=== PATIENT | female | born 1975 | race American Indian/Alaskan Native ===

== ENCOUNTER 2019-08-11 14:27 | Outpatient (CLI) | payer BC | END 2019-08-11 14:28 | disposition home or self-care (01) | LOC: LABHHL 14:27 | PROVIDERS: ATTEND Surgery | DX: N60.02 Solitary cyst of left breast (principal) | CPT/HCPCS: 88305; 88341; 88342 ==

== ENCOUNTER 2019-08-24 13:51 | Outpatient (CLI) | payer BC ==
--- NOTE | 2019-08-24 16:32 | Magnetic Resonance Report ---
BILATERAL BREAST MRI WITH AND WITHOUT CONTRAST HISTORY: Recently diagnosed left breast malignancy. COMPARISON: 07/27/2019 TECHNIQUE: Multiplanar multisequence MR images of the breasts were obtained before and after the intr avenous administration of 19 mL of MultiHance contrast agent. FINDINGS: The breasts demonstrate mild background parenchymal enhancement. LEFT BREAST: There is a homogeneously enhancing oval microlobulated 2.3 x 2.1 x 2.2 cm mass within th e left breast at the 8:00 position. This would correspond with the site of recently biopsied invasive ductal carcinoma. A biopsy marker is located within the anterior aspect of this mass. The mass is fa irly superficially located, but does not involve the overlying skin. No evidence of involvement of th e underlying pectoralis muscle. RIGHT BREAST: Within the right upper outer breast there is a 1.1 x 1 x 1.1 cm irregular ill-defined e nhancing mass. This is located at the 11:00 position, 4 cm from the nipple. It is best seen on image 148 of the subtraction sequence. A rounded 1.2 x 1.1 cm left axillary lymph node is noted. No abnormal right axillary lymph nodes or i nternal mammary lymph nodes. IMPRESSION: 1. Known biopsy-proven malignancy in the left breast at the 8:00 position measures up to 2.3 cm. No a dditional sites of abnormal enhancement within left breast to suggest further extent of disease. 2. There is a 1.1 cm area of enhancement within the right upper outer breast. A targeted ultrasound i s recommended with subsequent ultrasound-guided biopsy if a sonographic correlate is identified. For localization purposes, this is estimated to be at the 11:00 position, 4 cm from the nipple. 3. Enlarged left axillary lymph node. If would change clinical management, a left axillary ultrasound is recommended with possible biopsy. BIRADS 0: Incomplete--Needs Additional Imaging Evaluation. Signer Name: Deng Pedraza MD Signed: 08/24/2019 4:27 PM Workstation Name: [id number]
== END 2019-08-24 13:52 | disposition home or self-care (01) ==
LOC: SPVIMAG 13:51
PROVIDERS: ATTEND Surgery
DX: N63.24 Unspecified lump in the left breast, lower inner quadrant (principal); N63.11 Unspecified lump in the right breast, upper outer quadrant; R59.0 Localized enlarged lymph nodes; C50.912 Malignant neoplasm of unspecified site of left female breast
CPT/HCPCS: A9577; C8908; 77049

== ENCOUNTER 2019-08-28 11:21 | Day surgery (SDC) | payer BC ==
--- NOTE | 2019-08-27 12:54 | Short Stay Summary ---
Short Stay Documentation Date of service: 08/28/19 - History H&P: obtained from office - Allergies and Medications Current Medications: Allergies shrimp Allergy (Verified 08/23/19 13:48) Anaphylaxis Home Medications Medication Instructions Recorded Confirmed Last Taken Type No Known Home Medications [No 08/23/19 08/23/19 Unknown History Reported Home Medications] - Physical exam General appearance: no acute distress Integumentary: no rash, no abnormal pigmentation Lungs: Normal air movement Neurological: Normal speech - Brief post op/procedure progress note Date of procedure: 08/28/19 (dictation:[id number]) Pre-op diagnosis: breast cancer Post-op diagnosis: same Procedure: US guided Port Placement IVf 400cc EBL min Anesthesia: GETA Findings: normal anatomy. Normal post-procedure CXR Surgeon: TERRY HOSKINS Estimated blood loss: minimal Pathology: none Condition: stable - Hospital course Hospital course: uneventful - Disposition Condition at discharge: Stable Disposition: DC-01 TO HOME OR SELFCARE Short Stay Discharge Plan Activity: no restrictions, advance as tolerated Diet: regular Wound: open to air, keep clean and dry Special Instructions: no heavy lifting Additional Instructions: Post Operative Instructions Activity: no heavy lifting for next 1 week. May shower tomorrow. Pat dry the wound or wounds. Keep incision sites clean and dry After surgery, start with a light diet. Consider starting with liquids. If you do well, you can advance to a regular diet as you feel comfortable. Apply an ice pack to the wound or wounds for 10-20 minutes at a time. Do this at least 4-5 times a day. You can do it more if he would like. Pain Medication Schedule for the first 2 days after surgery: Gabapentin 300mg twice a day Celebrex (celecoxib) 200mg twice a day Tylenol 650mg four times a day (every 6 hours) After the first 2 days, then take alternating doses of ibuprofen and Tylenol as needed for pain. Take 600 mg of ibuprofen every 6 hours as needed. Take 500 mg of Tylenol every 6 hours as needed. You should alternate these 2 medicines. Make sure you take the ibuprofen with food. It is very important that you use the prescription narcotic pain medicine (hydrocodone) only for very severe pain. Do not take the narcotic medicine before you try using all the medications listed above. We will call you in a couple of days to see how youre doing. If you have any questions or concerns, always feel free to call the clinic ([phone]) at any time. Follow up with: PRIMARY CARE, [Primary Care Provider] - 7 Days Forms: Outpatient Surgery DC Inst. Prescriptions: Acetaminophen 650 mg PO QID 2 Days #16 capsule Celecoxib [celeBREX] 200 mg PO BID 2 Days #4 capsule Gabapentin 300 mg PO BID 2 Days #4 capsule HYDROcodone/APAP 5-325 [Cactus 5/325] 1 each PO Q6HR PRN #6 tablet PRN Reason: Pain
[~2019-08-28 11:21] MED LIST: ACETAMINOPHEN 500 MG TAB PO NR; CELECOXIB 200 MG CAP PO NR; GABAPENTIN 300 MG CAP PO SCH; SODIUM CHLORIDE 0.9% 1000 ML 1,000 ML IV SCH; ceFAZolin/Water 2 GM/20 ML 2 GM/20 ML SYRINGE IV NR
[2019-08-28] MEDS ORDERED: LIDOCAINE (1%) 10 MG/1 ML VIAL 20 ML MDV ONE (12:42)
[2019-08-28] MEDS ORDERED: BUPIVACAINE-EPINEPHRINE/PF 0.5%-1:200,000 (30 ML) VIAL INFILTRATI ONE ×2 (12:43→13:38)
[2019-08-28] MEDS ORDERED: HEPARIN 10,000 UNITS/10 ML VIAL ONE (12:43)
[2019-08-28] MEDS ORDERED: SODIUM CHLORIDE 0.9% 250ML 250 ML ONE (12:43)
[2019-08-28] MEDS ORDERED: SODIUM CHLORIDE P/F VIAL 10 ML 10 ML ONE ×2 (12:43)
[2019-08-28] MEDS ORDERED: MIDAZOLAM 2 MG/2 ML INJ ONE (12:44)
--- NOTE | 2019-08-28 12:50 | Anesthesia Day of Surgery ---
Anesthesia Day of Surgery - Day of Surgery Patient Examined: Yes Patient H&P Reviewed: Yes Patient is NPO: Yes
--- NOTE | 2019-08-28 12:51 | Anesthesia Consultation ---
Anesthesia Consult and Med Hx Date of service: 08/28/19 - Airway Anesthetic Teeth Evaluation: Chipped ROM Head & Neck: Adequate Mental/Hyoid Distance: Adequate Mallampati Class: Class III Intubation Access Assessment: Probably Good - Pre-Operative Health Status ASA Pre-Surgery Classification: ASA2 Proposed Anesthetic Plan: General - Central Nervous System Hx Psychiatric Problems: No - Other Systems Hx Alcohol Use: Yes (RARELY) Hx Substance Use: No Hx Cancer: Yes (L Breast) Hx Obesity: Yes (BMI 34)
[2019-08-28] MEDS ORDERED: MIDAZOLAM 2 MG/2 ML INJ IV NR (13:00)
[2019-08-28] MEDS ORDERED: PROPOFOL 200 MG/20 ML VIAL IV ONE (13:03)
[2019-08-28] MEDS ORDERED: fentaNYL 100 MCG/2 ML INJ ONE (13:06)
[2019-08-28] MEDS ORDERED: LIDOCAINE MPF (2%) 20 MG/1 ML VIAL 5 ML ONE ×2 (13:11→13:20)
[2019-08-28] MEDS ORDERED: dexAMETHasone 20 MG/5 ML VIAL ONE (13:22)
[2019-08-28] MEDS ORDERED: ONDANSETRON 4 MG/2 ML INJ ONE (13:24)
[2019-08-28] MEDS ORDERED: LIDOCAINE (1%) 10 MG/1 ML VIAL 20 ML MDV INFILTRATI ONE (13:38)
[2019-08-28] MEDS ORDERED: SODIUM CHLORIDE 0.9% 250 ML IVPB IV ONE (13:53)
[2019-08-28] MEDS ORDERED: HEPARIN 1,000 UNIT/1 ML VIAL IV ONE (13:53)
[2019-08-28] MEDS ORDERED: HEPARIN 10,000 UNITS/10 ML VIAL IV ONE (13:59)
--- NOTE | 2019-08-28 14:52 | Fluoroscopy Report ---
INTRAOPERATIVE FLUOROSCOPY: CHEST INDICATION: Guidance for Port-A-Cath placement. History of poor venous access. TECHNIQUE: Intraoperative spot images were obtained during the procedure. FINDINGS: A right internal jugular vein Port-A-Cath terminates over the cavoatrial junction. No acute abnormali ty of the chest is identified. Fluoroscopy Time: 1 minute, 22 seconds. Fluoroscopy Images: 2. Signer Name: Fernandez Milner MD Signed: 08/28/2019 2:48 PM Workstation Name: [id number]
--- NOTE | 2019-08-28 16:54 | Post Anesthesia Evaluation ---
- Post Anesthesia Evaluation Patient Participated: Yes Airway Patent: Yes Stable Respiratory Function: Yes Nausea/Vomiting: No Temp > 96.8F: Yes Pain Manageable: Yes Adequeate Hydration: Yes Anesthesia Complications: No Block Receding Appropriately: Not Applicable Patient on Ventilator: No
--- NOTE | 2019-08-28 19:36 | Operative Report ---
PREOPERATIVE DIAGNOSIS: Breast cancer. POSTOPERATIVE DIAGNOSIS: Breast cancer. PROCEDURES: 1. Insertion of tunneled centrally inserted central venous access device with subcutaneous port. 2. Ultrasound guidance for vascular access. ATTENDING PHYSICIAN: Willie Rodriguez MD. ANESTHESIA: General. ESTIMATED BLOOD LOSS: Minimal. FLUIDS: 400 mL. FINDINGS: Normal anatomy and post-procedure chest x-ray. IMPLANTS: Smart port. COMPLICATIONS: None. DISPOSITION: Stable, transferred to Recovery Room. INDICATIONS: This is a 43-year-old female who had a recent diagnosis of breast cancer in need of chemotherapy. The patient is assessed to be in need for port placement. Procedure, risks, benefits were explained to the patient. Risks include but were not limited to infection, bleeding, pain, injury to surrounding structures, possible need for further procedures in the future. The patient understood and consented. DESCRIPTION OF OPERATIVE NOTE: The patient was brought to the operating room and placed on the table in supine position. After adequate general anesthesia was established, ultrasound examination was done of the right internal jugular vein and subclavian vein. Right internal jugular vein was completely patent, easily visualized, large in size, appeared to be a very good target. Subclavian vein was very deep in the subcutaneous tissue, did not appear to be an easily accessible target. Therefore, decision was made for jugular vein entry. Towel roll was placed underneath the shoulders. Sterile prep and drape was performed. Antibiotics had been given. SCDs were in place. Time-out was called. I began by examining again the internal jugular vein, I decided upon an access site. This area was marked. Local anesthetic was applied. Transverse incision was made. Subcutaneous tissue was slightly dilated and then under ultrasound guidance, introducer needle was inserted. I accessed the internal jugular vein. Blood flow was sluggish; however, guidewire was able to be passed. We checked the position with fluoroscopy. It was going down the right side into the heart. We then secured the wire. I anesthetized the planned pocket site. Incision was made along the lines of skin tension. Dissection was carried down into the subcutaneous tissue. Pocket was made. Additional local was injected. We then passed the tunneler. The planned tunneling tract was anesthetized with local anesthetic. The tunneler was passed and brought out safely from the neck incision. We then passed the dilator and sheath over the guidewire making sure multiple times that the guidewire was easily movable, which it was. Once the sheath was in place, we removed the dilator and wire. Catheter was inserted. We adjusted the length based on fluoroscopy. We then trimmed the distal aspect attached to the port and then secured it with the collar. Port easily fit into the pocket. We adjusted the length again and then removed the remainder of the sheath. Final position of the catheter looked good. There was no kinking. We had easy aspiration and flushing with the dilute heparin. We then placed the patient from a Trendelenburg to reverse Trendelenburg position. Additional local was injected. Locking solution was administered. Deep tissue at the port was closed with interrupted 3-0 Vicryl sutures. Skin was closed with 4-0 Monocryl subcuticular stitches. Skin was cleaned and dried. Dermabond was placed. The patient tolerated the procedure well. There were no complications. All counts were correct at the end of the case. Post-procedure chest x-ray showed the catheter to be in good position without any evidence of any complications. I went out at the end of the case to speak with her family, but they were not present. JOB# [id number] RORY/MENDOZA SLAUGHTER
[2019-08-28 21:27] VITALS: BP 137/76
== END 2019-08-28 11:22 | disposition home or self-care (01) ==
LOC: OR 11:21
PROVIDERS: ATTEND Surgery
DX: C50.919 Malignant neoplasm of unspecified site of unspecified female breast (principal); E66.9 Obesity, unspecified; Z88.8 Allergy status to other drugs, medicaments and biological substances; Z79.899 Other long term (current) drug therapy; Z68.34 Body mass index [BMI] 34.0-34.9, adult; Z72.89 Other problems related to lifestyle; Z98.890 Other specified postprocedural states; Z80.8 Family history of malignant neoplasm of other organs or systems; Z80.1 Family history of malignant neoplasm of trachea, bronchus and lung
CPT/HCPCS: 36561; 77001; 81025; C1788; J0690; J1100; J1644; J2250; J2405; J2704; J3010; J7030; J7050

== ENCOUNTER 2019-08-30 10:51 | Outpatient (CLI) | payer BC ==
[2019-08-30 12:00] LABS: Blood Urea Nitrogen 7 mg/dL (7-17)
--- NOTE | 2019-08-30 13:20 | Cat Scan Report ---
CT CHEST, ABDOMEN AND PELVIS WITH CONTRAST HISTORY: Recently diagnosed left breast cancer. COMPARISON: MRI Breast Bilateral 08/24/2019 TECHNIQUE: CT images of the chest, abdomen and pelvis were obtained following administration of intra venous contrast. Note: All CT scans at this location are performed using CT dose reduction employed f or ALARA by means of automated exposure control. CONTRAST: 100 ml of Omnipaque 300. Consent was obtained prior to the administration of contrast. FINDINGS: CT CHEST: Heart and Pericardium: Normal. Vasculature: Normal. Lymphatics: No gross lymphadenopathy. No subpectoral or supraclavicular lymphadenopathy. The largest left axillary lymph node is a level 2 lymph node measuring 1.9 x 1.1 cm and it has benign morphology with central fat. This appears to correlate with the lymph node mentioned on the MRI. Multiple additi onal smaller level 2 axillary lymph nodes. Multiple small right axillary lymph nodes with benign morp hology. Lungs: No significant abnormality. Trachea and Bronchi: No significant abnormality. Osseous Structures: No suspicious bone lesions. Soft tissues: A 2.8 cm left lower inner breast mass with a biopsy clip. No right breast mass is ident ified to correlate with right breast mass described by MRI. CT ABDOMEN: Liver: Normal. Biliary: Normal gallbladder and bile ducts. Spleen: No significant abnormality. Unenlarged. Pancreas: No significant abnormality. Adrenals: No significant abnormality. Kidneys: No significant abnormality. Renal collecting systems and ureters are nondilated. Lymphatics: No lymphadenopathy. Vasculature: No significant abnormality. Bowel/Peritoneum: No significant abnormality. No free air. No free fluid. Normal appendix. CT PELVIS: : No significant abnormality. Normal uterus and ovaries. Osseous Structures: No suspicious bone lesions. Additional Findings: Normal rectum. IMPRESSION: 1. Known left breast cancer. 2. No evidence of metastatic disease. 3. Recommend management of the left axilla based on the MRI finding. Signer Name: Claude Dawn MD Signed: 08/30/2019 1:15 PM Workstation Name: [id number]
--- NOTE | 2019-08-30 14:38 | Nuclear Medicine Report ---
NUCLEAR MEDICINE BONE SCAN, WHOLE BODY INDICATION: C50.312 MALIGNANT NEOPLASM OF LOWER INNER QUADRANT OF LEFT FEMALE. TECHNIQUE: 27.7 mCi of Tc-99m MDP were injected IV. Whole body images were obtained. COMPARISON: CT chest abdomen and pelvis performed the same day.. FINDINGS: Skeletal Structures: Fairly symmetric, likely degenerative uptake is present involving the shoulders , sternoclavicular joints and thoracic spine. Skeletal Lesions: None. Soft Tissues: Normal. Kidneys: Normal, symmetric activity. Additional Findings: None. IMPRESSION: No evidence for osseous metastasis.. Signer Name: Gagan Quezada Jr, MD Signed: 08/30/2019 2:34 PM Workstation Name: [id number]
== END 2019-08-30 10:52 | disposition home or self-care (01) ==
LOC: CT 10:51
PROVIDERS: ATTEND Internal Medicine Hematology & Oncology
DX: C50.312 Malignant neoplasm of lower-inner quadrant of left female breast (principal); N63.24 Unspecified lump in the left breast, lower inner quadrant; I89.8 Other specified noninfective disorders of lymphatic vessels and lymph nodes
CPT/HCPCS: 36415; 71260; 74177; 78306; 82565; 84520; A9503; Q9967

== ENCOUNTER 2019-08-31 12:34 | Outpatient (CLI) | payer BC ==
--- NOTE | 2019-08-31 14:57 | Ultrasound Report ---
ULTRASOUND-GUIDED VACUUM-ASSISTED NEEDLE CORE BIOPSY RIGHT BREAST WITH CLIP PLACEMENT CLINICAL: Lesion on recent MRI. Newly diagnosed left breast cancer. FINDINGS: The procedure was explained to the patient and informed consent was obtained. Ultrasound demonstrated an irregular hypoechoic mass at 11:00 3 cm from the nipple which appears to c orrelate with the MRI finding. I marked the breast with a felt tip marker and a timeout was called. T he skin was prepped with Chloro-Prep and anesthetized with 1% lidocaine. Vacuum-assisted needle core biopsy was performed through tiny dermatotomy using ultrasound guidance, 2% lidocaine with epinephrine for deep anesthesia and a 10-gauge Mammotome Elite biopsy device. 6 cor es were obtained and placed in formalin. A clip was deployed at the site. The patient tolerated the procedure well and there were no apparent complications. Hemostasis was ach ieved with minimal effort and a sterile dressing was applied. A post procedure mammogram demonstrated concordant clip deployment. She left the department in good c ondition and was given instructions for wound care and follow-up. IMPRESSION: Uncomplicated ultrasound guided vacuum assisted needle core biopsy with clip placement [facility] breast. Signer Name: Claude Dawn MD Signed: 08/31/2019 2:53 PM Workstation Name: [id number]
--- NOTE | 2019-08-31 15:01 | Ultrasound Report ---
LIMITED RIGHT BREAST ULTRASOUND HISTORY: Newly diagnosed left breast cancer and a suspicious right breast lesion by MRI. COMPARISON: 08/24/2019 MRI Breast FINDINGS: Focused sonographic evaluation upon the 11:00 location of the right breast demonstrates an irregular hypoechoic shadowing mass 3 cm from the nipple. It measures 1.1 x 0.4 x 0.8 cm and correlat es with the MRI finding. IMPRESSION: A suspicious 1.1 cm right breast mass at 11:00 3 cm from the nipple which appears to douglas elate with the abnormality identified by MRI. Since we have in order, I will proceed with ultrasound-guided needle biopsy. BIRADS 4: Suspicious abnormality. Signer Name: Claude Dawn MD Signed: 08/31/2019 2:57 PM Workstation Name: [id number]
--- NOTE | 2019-08-31 15:42 | Mammography Report ---
DIGITAL DIAGNOSTIC MAMMOGRAM WITH CAD, 08/31/2019 INDICATION: For clip placement after ultrasound-guided needle biopsy. TECHNIQUE: Digital right mammographic imaging was performed. This examination was interpreted with the benefit of Computer-aided Detection analysis. COMPARISON: 07/27/2019 mammograms and 08/24/2019 MRI FINDINGS: Breast Density: The breast is heterogeneously dense, which may obscure small masses. An upper outer periareolar biopsy clip correlates with the site of today's biopsy. It is also concord ant with the lesion identified by MRI. IMPRESSION: Concordant clip placement. Follow up recommendation: Dependent upon biopsy result. BI-RADS Category 4: Suspicious for Malignancy. A "normal" or negative report should not discourage follow up or biopsy of a clinically significant f inding. A written summary of these findings will be mailed to the patient. The patient will be entered into a mammography reporting system which will generate a reminder letter for the patient's next appointmen t at the appropriate interval. According to the [employer], yearly mammograms are recommended starting at age 40 and continuing as long as a woman is in good health. Breast MRI is recommended for women with an elvira roximately 20-25% or greater lifetime risk of breast cancer, including women with a strong family his tory of breast or ovarian cancer and women who have been treated for Hodgkin's disease. Signer Name: Claude Dawn MD Signed: 08/31/2019 3:38 PM Workstation Name: [id number]
== END 2019-08-31 12:35 | disposition home or self-care (01) ==
LOC: SPVWC 12:34
PROVIDERS: ATTEND Surgery
DX: C50.912 Malignant neoplasm of unspecified site of left female breast (principal); R92.8 Other abnormal and inconclusive findings on diagnostic imaging of breast; E66.9 Obesity, unspecified; Z88.8 Allergy status to other drugs, medicaments and biological substances; Z79.899 Other long term (current) drug therapy; Z72.89 Other problems related to lifestyle; Z98.890 Other specified postprocedural states

== ENCOUNTER 2019-09-06 14:41 | Outpatient (CLI) | payer BC ==
--- NOTE | 2019-09-06 15:55 | Ultrasound Report ---
ULTRASOUND-GUIDED NEEDLE CORE BIOPSY LEFT AXILLARY LYMPH NODE WITH CLIP PLACEMENT CLINICAL: Newly diagnosed left breast cancer. A suspicious lymph node by MRI. FINDINGS: The procedure was explained to the patient and informed consent was obtained. Ultrasound demonstrated the previously identified lymph node.. I marked the breast with a felt tip marker and a timeout was called. The skin was prepped with Chloro -Prep and anesthetized with 1% lidocaine. Needle core biopsy was performed through small dermatotomy using ultrasound guidance, 2% lidocaine wi th epinephrine for deep anesthesia and a 18-gauge Achieve biopsy device. 2 cores were obtained and pl aced in formalin. A clip was deployed within the lymph node. The patient tolerated the procedure well and there were no apparent complications. Hemostasis was ach ieved with minimal effort and a sterile dressing was applied. IMPRESSION: Uncomplicated ultrasound guided needle core biopsy with clip placement left axillary lymp h node. Signer Name: Claude Dawn MD Signed: 09/06/2019 3:50 PM Workstation Name: [id number]
== END 2019-09-06 14:42 | disposition home or self-care (01) ==
LOC: SPVWC 14:41
PROVIDERS: ATTEND Surgery
DX: C50.912 Malignant neoplasm of unspecified site of left female breast (principal); E66.9 Obesity, unspecified; I89.8 Other specified noninfective disorders of lymphatic vessels and lymph nodes; Z79.899 Other long term (current) drug therapy; Z98.890 Other specified postprocedural states; Z72.89 Other problems related to lifestyle; Z68.34 Body mass index [BMI] 34.0-34.9, adult; Z80.1 Family history of malignant neoplasm of trachea, bronchus and lung; Z80.8 Family history of malignant neoplasm of other organs or systems
CPT/HCPCS: 38505; 76942; 88305; 88342

== ENCOUNTER 2019-09-11 12:36 | Outpatient (CLI) | payer BC ==
[2019-09-11 13:16] LABS: Blood Urea Nitrogen 12 mg/dL (7-17)
--- NOTE | 2019-09-11 15:19 | Cat Scan Report ---
CT NECK WITH CONTRAST HISTORY: Malignant neoplasm of the lower inner quadrant of left breast COMPARISON: None. TECHNIQUE: Routine CT of the neck is performed following 100 cc of Omnipaque 300 intravenous contrast . Sagittal and coronal reformatted images. All CT scans at this location are performed using CT dose reduction for ALARA by means of automated exposure control. FINDINGS: Skull Base: No significant abnormality. Parotid, Carotid, Retropharyngeal, Prevertebral, Pharyngeal Mucosal, and Construction [employer] Leak [employer] Spaces: No abnorm al mass, enhancing lesion or other significant abnormality. Airway: Patent and without significant abnormality. Lymphatics: No lymphadenopathy. Vasculature: No significant abnormality. Osseous Structures: No significant abnormality Additional findings: None. IMPRESSION: Unremarkable CT neck with contrast. No evidence for metastatic disease. Signer Name: Gagan Quezada Jr, MD Signed: 09/11/2019 3:15 PM Workstation Name: [id number]
== END 2019-09-11 12:37 | disposition home or self-care (01) ==
LOC: CT 12:36
PROVIDERS: ATTEND Internal Medicine Hematology & Oncology
DX: C50.312 Malignant neoplasm of lower-inner quadrant of left female breast (principal); N63.11 Unspecified lump in the right breast, upper outer quadrant
CPT/HCPCS: 36415; 70491; 82565; 84520; 88305; Q9967

== ENCOUNTER 2020-01-02 14:53 | Outpatient (CLI) | payer BC | END 2020-01-02 14:54 | disposition home or self-care (01) | LOC: SPVWC 14:53 | PROVIDERS: ATTEND Surgery | DX: C50.312 Malignant neoplasm of lower-inner quadrant of left female breast (principal) ==

== ENCOUNTER 2020-07-30 08:42 | Outpatient (CLI) | payer BC ==
--- NOTE | 2020-07-30 09:38 | Mammography Report ---
DIGITAL DIAGNOSTIC MAMMOGRAM WITH CAD CONVENTIONAL, 07/30/2020 CLINICAL INFORMATION / INDICATION: Patient has history of left breast cancer status post lumpectomy in January 2020. TECHNIQUE: Digital bilateral mammographic imaging was performed. This examination was interpreted with the benefit of Computer-aided Detection analysis. COMPARISON: Prior mammogram 07/27/2019 FINDINGS: Breast Density: The breasts are heterogeneously dense, which may obscure small masses. No dominant mass, suspicious calcifications or architectural distortion in either breast. There is new benign postlumpectomy change seen in the lower inner quadrant of the left breast. There is stable post reduction change and stable benign-appearing calcifications seen in both breasts. IMPRESSION: No mammographic evidence of malignancy. Follow up recommendation: Routine yearly BI-RADS Category 2: Benign. A "normal" or negative report should not discourage follow up or biopsy of a clinically significant f inding. A written summary of these findings will be mailed to the patient. The patient will be entered into a mammography reporting system which will generate a reminder letter for the patient's next appointmen t at the appropriate interval. According to the [employer], yearly mammograms are recommended starting at age 40 and continuing as long as a woman is in good health. Breast MRI is recommended for women with an elvira roximately 20-25% or greater lifetime risk of breast cancer, including women with a strong family his tory of breast or ovarian cancer and women who have been treated for Hodgkin's disease. Signer Name: Zoya Ramirez MD Signed: 07/30/2020 9:33 AM Workstation Name: [id number]
== END 2020-07-30 08:43 | disposition home or self-care (01) ==
LOC: SPVWC 08:42
PROVIDERS: ATTEND Surgery
DX: R92.1 Mammographic calcification found on diagnostic imaging of breast (principal); Z85.3 Personal history of malignant neoplasm of breast
CPT/HCPCS: 77066

== ENCOUNTER 2020-10-25 06:33 | Day surgery (SDC) | payer BC ==
[2020-10-25] MEDS ORDERED: BUPIVACAINE/PF (0.5%) 5 MG/1 ML 30 ML VIAL INFILTRATI ONE (07:29)
[2020-10-25] MEDS ORDERED: LIDOCAINE (1%) 10 MG/1 ML VIAL 20 ML MDV ONE (07:33)
--- NOTE | 2020-10-25 08:26 | Procedure Note ---
Date of procedure: 10/25/20 Pre-op diagnosis: breast cancer Post-op diagnosis: same Procedure: removal of right sided infusaport Findings: HPI and indication: 45 yo F with breast cancer who underwent chemotherapy and now has completed therapy. Port is cleared to be removed by oncologist. Patient presents for removal. Procedure in detail: Pt identified in preop area and brought to procedure room and positioned on stretcher in supine position. The right upper chest was prepped and draped in usual sterile fashion. Patient placed in trendelenberg. Local anesthetic was infiltrated into skin at intended incision site. An incision was made using 15 blade through old scar. Dissection of subcutaneous tissues performed with hemostat until catheter identified. Catheter grasped between two hemostats and cut. Catheter removed and pressure held for several mi nutes. No bleeding identified. Subcutaneous port dissected from capsule using hemostat and electrocautery and removed from wound. Both pieces passed off table as specimen for ID only. Wound irrigated and hemostasis ensured. The wound was closed in layered fashion. Deep layer closed with 3-0 vicryl interrupted stitches and skin closed with 4-0 monocryl running subcuticular stitch and skin glue. Patient tolerated procedure well. Once glue was dry a 2x2 gauze compression dressing was applied to the area and secured with tegaderm. All sharps, instrument, sponge counts were correct at end of case. Patient was discharged to home in stable condition. Anesthesia: local Surgeon: ROSANNA VARGAS Estimated blood loss: minimal Pathology: list (port and catheter (for ID only)) Specimen disposition: to lab Condition: stable Disposition: other (home)
[2020-10-25 08:43] VITALS: BP 124/78
== END 2020-10-25 06:34 | disposition home or self-care (01) ==
LOC: OR 06:33
PROVIDERS: ATTEND Surgery
DX: Z45.2 Encounter for adjustment and management of vascular access device (principal); E11.9 Type 2 diabetes mellitus without complications; Z85.3 Personal history of malignant neoplasm of breast; Z79.899 Other long term (current) drug therapy; Z79.84 Long term (current) use of oral hypoglycemic drugs; Z72.89 Other problems related to lifestyle; Z98.890 Other specified postprocedural states; Z80.42 Family history of malignant neoplasm of prostate; Z80.1 Family history of malignant neoplasm of trachea, bronchus and lung
CPT/HCPCS: 82962; 88300; 88302

== ENCOUNTER 2021-02-04 08:11 | Outpatient (CLI) | payer BC ==
--- NOTE | 2021-02-04 09:15 | Mammography Report ---
DIGITAL DIAGNOSTIC MAMMOGRAM WITH CAD, -- 02/04/2021 INDICATION: The patient has a personal history of left breast cancer treated with lumpectomy. She rep orts generalized left breast pain. TECHNIQUE: Digital left mammographic imaging was performed. This examination was interpreted with the benefit of Computer-aided Detection analysis. COMPARISON: 07/30/2020, 01/24/2020, 01/02/2020 FINDINGS: Breast Density: There are scattered areas of fibroglandular density. There is no evidence of dominant mass, suspicious calcifications or architectural distortion in the l eft breast. Postsurgical changes from previous lumpectomy are noted in the lower inner quadrant. No n ew or suspicious finding is identified. IMPRESSION: Follow up recommendation: Clinical exam BI-RADS Category 2: Benign. Expected postsurgical changes of the left breast after lumpectomy. No fo snoja abnormality is identified to correspond to the patient's pain. A "normal" or negative report should not discourage follow up or biopsy of a clinically significant f inding. A written summary of these findings will be mailed to the patient. The patient will be entered into a mammography reporting system which will generate a reminder letter for the patient's next appointmen t at the appropriate interval. According to the [employer], yearly mammograms are recommended starting at age 40 and continuing as long as a woman is in good health. Breast MRI is recommended for women with an elvira roximately 20-25% or greater lifetime risk of breast cancer, including women with a strong family his tory of breast or ovarian cancer and women who have been treated for Hodgkin's disease. Signer Name: Genet Huang MD Signed: 02/04/2021 9:11 AM Workstation Name: [employer]
== END 2021-02-04 08:12 | disposition home or self-care (01) ==
LOC: SPVWC 08:11
PROVIDERS: ATTEND Surgery
DX: R92.8 Other abnormal and inconclusive findings on diagnostic imaging of breast (principal); Z85.3 Personal history of malignant neoplasm of breast